=== PATIENT | male | born 1950 | race Caucasian/White ===

== ENCOUNTER 2020-01-24 07:45 | Day surgery (SDC) | payer MEDICARE, BC ==
[~2020-01-24 07:45] MED LIST: Midazolam 1 MG/ML 2 ML SDV ONE; Propofol 200 MG/20 ML SDV ONE; fentaNYL 100 MCG/2 ML SDV ONE
[2020-01-24] MEDS ORDERED: Metoprolol Tartrate 50 MG Tab PO ONE (08:00)
[2020-01-24] MEDS ORDERED: Dextrose 5%-Lactated Ringers 1,000 ML IV SCH (08:15)
[2020-01-24] MEDS ORDERED: Meropenem 500 MG in Sodium Chloride 0.9% 50 ML IV ONE (09:00)
--- NOTE | 2020-01-30 11:37 | OR ---
DATE OF PROCEDURE: 01/24/2020 SURGEON: Morris Sorai MD PREOPERATIVE DIAGNOSIS: History of positive Cologuard examination. POSTOPERATIVE DIAGNOSES: 1. Single polyp involving splenic flexure. 2. Minimal left colonic diverticulosis. OPERATIVE PROCEDURES: Flexible colonoscopy with: 1. Polypectomy by snare technique (87144). 2. Injection of Sulema Ink at polypectomy site ([id number]). ANESTHESIA: IV sedation. INDICATIONS FOR PROCEDURE: A 69-year-old presenting after a positive Cologuard examination for colonoscopy with biopsies and/or polypectomy as indicated. Potential risks including bleeding and perforation were discussed, and the patient wishes to proceed. DETAILS OF PROCEDURE: The patient was taken to the operating room, placed in a left lateral decubitus position. IV sedation was administered, after which the initial digital rectal exam was undertaken and it was unremarkable. Colonoscope was passed into the rectum with retroflexion revealing uncomplicated hemorrhoidal columns. Scope was eventually passed to the level of the cecum. The prep was quite good with only small amount of liquid stool present. To that level, the patient was noted to have some uncomplicated left colonic diverticulosis. A single polyp measuring around 4 mm was located in what appeared to be splenic flexure. This was encircled with the snare and excised by means of cautery snare technique and sent for histologic evaluation. Good hemostasis in the polypectomy site was confirmed and the scope was withdrawn and the procedure was then concluded. The patient was taken to the recovery room in satisfactory condition. Assuming that the polyp is an adenomatous polyp, a 3-year followup colonoscopy would be warranted. Morris Soria MD /[id number]
== END 2020-01-24 11:30 | disposition home or self-care (01) ==
LOC: JP.SDS 07:45
PROVIDERS: ATTEND Surgery
DX: D12.3 Benign neoplasm of transverse colon (principal); K57.30 Diverticulosis of large intestine without perforation or abscess without bleeding; I25.2 Old myocardial infarction; I25.10 Atherosclerotic heart disease of native coronary artery without angina pectoris; E11.9 Type 2 diabetes mellitus without complications; K21.9 Gastro-esophageal reflux disease without esophagitis
CPT/HCPCS: 88305; A9270-GY; J2185; J2250; J2704; J3010; J7050; J7121

== ENCOUNTER 2023-05-12 09:36 | Day surgery (SDC) | payer MEDICARE, BC ==
[2023-05-12] MEDS ORDERED: Propofol 200 MG/20 ML SDV ONE (10:15)
[2023-05-12] MEDS ORDERED: fentaNYL 50 MCG/ML SDV ONE (10:15)
[2023-05-12] MEDS: Lactated Ringers 1,000 ML IV SCH (10:46)
[2023-05-12] MEDS: Piperacillin/Tazobactam/Dext 3.375 GM in Premix Bag 1 BAG IV ONE (12:16)
== END 2023-05-12 14:16 | disposition home or self-care (01) ==
LOC: JP.SDS 09:36
PROVIDERS: ATTEND Student in an Organized Health Care Education/Training Program
DX: Z12.11 Encounter for screening for malignant neoplasm of colon (principal); K63.5 Polyp of colon; K57.30 Diverticulosis of large intestine without perforation or abscess without bleeding; I25.10 Atherosclerotic heart disease of native coronary artery without angina pectoris; I35.0 Nonrheumatic aortic (valve) stenosis; E78.2 Mixed hyperlipidemia; I71.21 Aneurysm of the ascending aorta, without rupture; Z98.890 Other specified postprocedural states; Z79.899 Other long term (current) drug therapy
CPT/HCPCS: 45380; 88305; J2543; J2704; J3010; J7120